=== PATIENT | male | born 1980 | race Caucasian/White ===

== ENCOUNTER 2016-12-17 13:25 | Inpatient (IN) ==
[2016-12-17 14:48] LABS: BUN/Creatinine Ratio 8 (6-26); Blood Urea Nitrogen 8 mg/dL (8-26); Calcium 9.5 mg/dL (8.6-10.8); Carbon Dioxide 27 mEq/L (19-29); Chloride 103 mEq/L (98-109); Glucose 102 mg/dL (70-99); Osmolality,Calculated 285 (280-300); Potassium 3.8 mEq/L (3.5-4.5); Sodium 138 mEq/L (136-145); eGFR For African Americans > 60 (> 60); eGFR For Non-African Americans > 60 (> 60)
--- NOTE | 2016-12-17 15:09 | Emergency Department Note ---
Disposition Clinical Impression: Cough, Hemoptysis Pneumonia Qualifiers: Pneumonia type: due to unspecified organism Laterality: right Lung location: upper lobe of lung Qualified Code(s): J18.1 - Lobar pneumonia, unspecified organism Disposition: Admitted As Inpatient Condition: Good Time of Disposition: 17:16 General Adult HPI - General Chief complaint: ED Upper Respiratory Infection Stated complaint: coughing up blood for 7 days, sick [id number], Time Seen by Provider: 12/17/16 14:05 Source: patient Limitations: no limitations Nursing Notes Reviewed: Yes Vital Signs Reviewed: Yes - History of Present Illness HPI Narrative: 36-year-old male presenting to the emergency department with a chief complaint of hemoptysis. Patient states for the past week he has had cough and increased shortness of breath. Patient states his children and significant other were sick with similar symptoms. He states he tried [id number] medications with minimal relief. Denies using antibiotics or oral steroids for this infection. The past 2 days patient has had hemoptysis upon waking up. Denies blood in his stool or blood in his urine. Patient denies any history of blood clots, hormonal replacement therapy, long trips, or unilateral leg swelling. Patient states he coughed up a quarter size amount of bright red blood. Patient denies dizziness or passing out. Pain Scale: 2 - Related Data Home Medications Medication Instructions Recorded Confirmed Benzonatate [Tessalon] 200 mg PO TID PRN 12/17/16 12/17/16 Allergies Allergy/AdvReac Type Severity Reaction Status Date / Time No Known Allergies Allergy Verified 12/17/16 13:31 All systems ED: reviewed and negative except as stated. Constitutional: Denies: fever, chills, weakness Eyes: Reports: as per HPI ENT ED: Reports: as per HPI Cardiovascular: Reports: chest pain (Pleuritic), dyspnea on exertion. Denies: palpitations Respiratory: Reports: cough, dyspnea, hemoptysis Gastrointestinal: Denies: abdominal pain, nausea, vomiting Genitourinary: Reports: as per HPI Musculoskeletal: Reports: as per HPI Integumentary: Denies: rash, abrasion, lesions Neurological: Reports: as per HPI Psychiatric: Reports: as per HPI Endocrine: Reports: as per HPI Hematological/Lymphatic: Reports: as per HPI Allergic/Immunologic: Reports: as per HPI Past Medical History - Past Medical History Attestation: Yes The following information was validated with the patient. Medical history: Reports: no medical history - Social History Smoking Status: Former smoker Alcohol use: Reports: occasionally Drug use: Reports: none Physical Exam - General Limitations: no limitations General appearance: alert, in no apparent distress - Head Head exam: atraumatic, normocephalic, normal inspection - Eye Eye exam: Present: normal appearance. Absent: scleral icterus, conjunctival injection - Chest Chest inspection: Present: normal inspection, symmetric chest wall rise. Absent : tenderness, rash - Respiratory Respiratory exam: Present: normal lung sounds bilaterally. Absent: respiratory distress, wheezes, stridor, accessory muscle use, prolonged expiratory phase - Cardiovascular Cardiovascular exam: Present: regular rate, normal rhythm, normal heart sounds - Abdominal Exam Abdominal exam: Present: soft, Non-Tender. Absent: distention, guarding, rebound - Extremities Exam Extremities exam: Present: normal inspection, full ROM - Back Exam Back exam: Present: normal inspection. Absent: CVA tenderness (R), CVA tenderness (L) - Neurological Exam Neurological exam: Present: alert, oriented X3 - Psychiatric Psychiatric exam: Present: normal affect, normal mood - Skin Skin exam: Present: warm, intact Course Course Narrative: 36-year-old male presenting to the emergency Department chief complaint of hemoptysis. Patient has no obvious signs concerning for PE but we will obtain a CTA of the chest due to new onset hemoptysis. We will also obtain a BMP. Disposition pending results. Patient alert and oriented 3 in the room with stable vital signs at this time. - Reevaluation(s) Reevaluation #1: CT showed possible tuberculosis. Patient placed on contact precautions. We will order sputum smears along with empiric antibiotics and admit the patient with isolation protocol. Spoke with infectious disease and pulmonology who agreed with this plan. Time: 16:38 Reevaluation #2: Chino Knutson accepts the patient Time: 17:15 Vital Signs Temperature 99.0 F 12/17/16 13:26 Pulse Rate 70 12/17/16 13:26 Respiratory Rate 16 12/17/16 13:26 Blood Pressure 137/90 12/17/16 13:26 O2 Sat by Pulse Oximetry 95 12/17/16 13:26 Temperature 99.0 F 12/17/16 13:26 Pulse Rate 89 12/17/16 17:06 Respiratory Rate 18 10/13/17 18:42 Blood Pressure 126/75 12/17/16 18:42 O2 Sat by Pulse Oximetry 96 12/17/16 17:06 Oxygen Delivery Oxygen Delivery Room Air Medical Decision Making - Lab Data Result diagrams: 12/17/16 14:19 Lab Results 12/17/16 Range/Units 14:19 Sodium 138 (136-145) mEq/L Potassium 3.8 (3.5-4.5) mEq/L Chloride 103 (98-109) mEq/L Carbon Dioxide 27 (19-29) mEq/L BUN 8 (8-26) mg/dL Creatinine 1.06 (0.72-1.25) mg/dL Est GFR ( Amer) > 60 (> 60) Est GFR (Non-Af Amer) > 60 (> 60) BUN/Creatinine Ratio 8 (6-26) Glucose 102 H (70-99) mg/dL Calculated Osmolality 285 (280-300) Calcium 9.5 (8.6-10.8) mg/dL Attestation Statement - Attestation Attestation: I examined this patient and my medical decision-making was reviewed with the Resident Physician. I agree with the documented findings, disposition and treatment plan as described except to the extent set forth below. Hemoptysis with cavitary lesion. Concern for tuberculosis. Placed on isolation precautions. We did consult IV for antibiotic selection as well as pulmonology for further management. Patient only admitted on isolation for further evaluation of possible active tuberculosis.
[2016-12-17] MEDS ORDERED: Piperacillin/Tazobactam 3.375 GM in D5% in Water (Mini-Bag+) 100 ML IVPB ONE (16:30)
[2016-12-17] MEDS ORDERED: Vancomycin 1,500 MG in D5% in Water 250 ML IVPB ONE (16:30)
[2016-12-17] MEDS ORDERED: Tuberculin Skin Test (PPD) 5 TUB/0.1 ML VIAL ID ONE (16:34)
[2016-12-17] MEDS ORDERED: Ondansetron 4 MG/2 ML VIAL IVP PRN (21:51)
[2016-12-17] MEDS ORDERED: Naloxone 0.4 MG/ML INJ IVP PRN (21:51)
[2016-12-17 22:37] LABS: Basophils % 0.3 %; Eosinophils % 0.6 %; Hematocrit 41.3 % (37.5-50.1); Hemoglobin 14.4 g/dL (12.9-16.9); Immature Granulocytes % 0.1 % (0-4); Immature Platelets 3.8 % (1.1-6.1); Lymphocytes # 1.2 K/mcL (0.6-4.6); Lymphocytes % 17.2 %; Mean Corpuscular HGB Conc 34.9 g/dL (31.6-35.5); Mean Platelet Volume 9.4 fL (9.4-12.4); Monocytes % 13.9 %; Neutrophils # 4.7 K/mcL (1.6-8.9); Platelet Count 247 K/mcL (140-400); Red Cell Distribution Width 12.2 % (11.5-14.5); Segmented Neutrophils % 67.9 %
[2016-12-18] MEDS ORDERED: Vancomycin 1,500 MG in D5% in Water 250 ML IVPB SCH (01:00)
--- NOTE | 2016-12-18 01:00 | Internal Med History&Physical ---
<Nicolette Richardson - Last Filed: 12/18/16 01:21> Date of Encounter: 12/18/16 Time of Encounter: 22:00 Assessment and Plan (1) Cough Current visit: Yes Status: Acute The patient has been experiencing a cough for the past 3 weeks no fever no sputum production or wheezing. Denies any sick contacts He is a nonsmoker. He has been experiencing hemoptysis for the past 2 days. DT of chest is concerning for possible tuberculosis, infection with lung abscess (including angioinvasive aspergillosis), versus cavitary neoplasm. Patient is placed in droplet precautions Consulted pulmonology as well as infectious disease. According to ER records ID recommended vancomycin and Zosyn which we will continue 2 oxygen as needed 3 Broncho dilators as needed (2) Hemoptysis Current visit: Yes Status: Acute 1 patient has been experiencing cough for 3 weeks for the past 2 days he has been awaking experiencing hemoptysis. Coughing up blood approximately size of quarter. Highly suspicious for tuberculosis-he denies any fevers night sweats or weight loss. He does have shortness of breath. 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 CT of chest is suspicious for tuberculosis, infection with lung abscess (including angioinvasive aspergillosis), versus cavitary neoplasm. Patient has been placed in droplet precautions -negative pressure room 2 Quantiferom obtained 3 TB skin test performed 4 AFB sputum spot culture obtained, we will obtain early a.m. as well as second spot culture 5 consulted infectious disease as well as pulmonology (3) DVT prophylaxis Current visit: Yes Status: Acute SCD while in bed and encourage patient to ambulate Internal Medicine - H&P: HPI Chief complaint: Hemoptysis Admitted From: Emergency Dept Plans for Post Hospital Care: Home History of present illness: Mr. Waldron is a 36 year old male with no past medical history. According patient for the past 3 weeks she has been experiencing cough and shortness of breath. His and children have been experiencing similar symptoms. He has tried [id number] medications with minimal relief no recent antibiotic use. For the past 2 days he has been waking up in the morning with hemoptysis. Coughing of quarter size bright red blood. He denies any fevers or night sweats or weight loss. He denies any recent travel outside the country. 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 He presented to the ER with these complaints. Work was completed and was unremarkable CT of chest revealed possible tuberculosis. Infectious disease as well as pulmonology have been consulted per ER physician. He has been placed in droplet precautions admitted for further work up evaluation. Presently patient is on. Respiratory distress he is chest pain-free and hemodynamically stable at this time. I did review this case with Dr. Belcher who did agree plan. Past Med Surg Social Fam HX - Past Medical History Medical history: no medical history - Social History Smoking Status: Former smoker Smokeless Tobacco Status: Yes Alcohol use: occasionally Drug use: none - Family History Father Living Status: Still Living Hx Family Cardiac Disorders: Yes (htn) Internal Medicine - H&P: Meds Benzonatate [Tessalon] 200 mg PO TID PRN 12/17/16 [History] 3 Allergy/AdvReac Type Severity Reaction Status Date / Time No Known Allergies Allergy Verified 12/17/16 13:31 All Systems PM: A 10-system review of systems was performed and is negative for pertinent findings except as documented above in the HPI. - Constitutional Constitutional: no chills, no fever(s), no night sweats - EENT Eyes: no change in vision, no discharge, no pain, no photophobia - Cardiovascular Cardiovascular ROS IM: no chest pain, no diaphoresis, no dyspnea, no lightheadedness, no palpitations, no syncope - Respiratory Respiratory: cough, dyspnea, hemoptysis - Gastrointestinal Gastrointestinal: no abdominal pain, no diarrhea, no hematemesis, no hematochezia, no melena, no nausea, no vomiting - Musculoskeletal Musculoskeletal ROS IM: no numbness, no tingling - Integumentary Integumentary IM: no rash, no unusual bruising - Neurological Neurological ROS: no confusion, no convulsions, no focal weakness, no numbness, no tingling, no tremor(s) - Hematologic/Lymphatic Hematologic/Lymphatic: no easy bruising - Constitutional Vitals: Temp Pulse Resp BP Pulse Ox 98.8 F 65 18 125/84 100 12/17/16 23:13 12/17/16 23:13 12/17/16 23:13 12/17/16 23:13 12/17/16 23:13 General appearance: Present: A&O X 3, answers questions appropriately - Head Head exam: Present: atraumatic, normocephalic - Eye Eye exam: Present: PERRL, conjuntiva pink, sclera anicteric Pupils: Present: PERRL - Neck Neck exam general surgery: Present: supple, trachea midline. Absent: lymphadenopathy - Respiratory Respiratory exam: Present: CTAB. Absent: accessory muscle use, rales, rhonchi, wheezes - Cardiovascular Cardiovascular exam: Present: RRR, +S1, +S2. Absent: diastolic murmur, gallop, rubs, systolic murmur - GI/Abdominal GI/Abdominal exam: Present: normal bowel sounds, soft, no peritoneal signs. Absent: distended, tenderness - Extremities Exam Extremities exam: Present: warm, radial pulses palpable and symmetrical. Absent : calf tenderness, cyanotic, pedal edema - Neurological Exam Neurological exam: Present: CN II-XII intact, oriented X3, no focal deficits. Absent: pronater drift, facial droop, speech deficit - Skin Skin exam: Present: dry, intact Internal Med - H&P Results - Labs CBC & Chem 7: 12/17/16 22:28 12/17/16 14:19 Labs: Short CBC 12/17/16 Range/Units 22:28 WBC 6.9 (4.3-11.1) K/mcL Hgb 14.4 (12.9-16.9) g/dL Hct 41.3 (37.5-50.1) % Plt Count 247 (140-400) K/mcL Neutrophils # 4.7 (1.6-8.9) K/mcL - Diagnostic Studies Other Images Additional comments: Chest CTA 12/17/16 14:13 IMPRESSION: No evidence of pulmonary embolism. 2.5 x 2.6 cm cavitary lesion in the right upper lobe, with surrounding centrilobular nodules, likely related to tuberculosis, infection with lung abscess (including angioinvasive aspergillosis), versus cavitary neoplasm. D/ / Maldonado Hartley MD / Maldonado Hartley MD Interpreting Provider: Maldonado Hartley MD <Russ Belcher - Last Filed: 12/18/16 03:40> Date of Encounter: 12/17/16 Internal Medicine - H&P: HPI History of present illness: Mr. Waldron is a 36 year old male All Systems PM: A 10-system review of systems was performed and is negative for pertinent findings except as documented above in the HPI. - Constitutional Vitals: Temp Pulse Resp BP Pulse Ox 98.8 F 65 18 125/84 100 12/17/16 23:13 12/17/16 23:13 12/17/16 23:13 12/17/16 23:13 12/17/16 23:13 Internal Med - H&P Results - Labs CBC & Chem 7: 12/17/16 22:28 12/17/16 14:19 Labs: Short CBC 12/17/16 Range/Units 22:28 WBC 6.9 (4.3-11.1) K/mcL Hgb 14.4 (12.9-16.9) g/dL Hct 41.3 (37.5-50.1) % Plt Count 247 (140-400) K/mcL Neutrophils # 4.7 (1.6-8.9) K/mcL - Diagnostic Studies CT scan - chest Status: image reviewed by me - Attending Attestation Correction, date of encounter was 12/17/16 and not 12/18/16, the error is purely electronic in nature I personally interviewed and examined this patient and my medical decision- making was reviewed with the Advanced Practice Nurse. I agree with the documented findings, disposition and treatment plan as described except to the extent set forth below. Patient is on airborne precautions and not droplets. He will need AFB with acid fast stain x3(spot, select banker and spot). His clinical presentation and findings as well as his employment history is highly suspicious for pulmonary tuberculosis. Family has been advised to do PPD test and get treatment for latent TB should they be positive. Infectious disease input appreciated. Russ Belcher MD, MPH Hospitalist
[2016-12-18] MEDS ORDERED: Albuterol 2.5 MG/3 ML NEBULIZER IH PRN (01:22)
[2016-12-18] MEDS: Piperacillin/Tazobactam 3.375 GM in D5% in Water (Mini-Bag+) 100 ML IVPB SCH ×3 (02:05→17:59)
[2016-12-18 03:42] LABS: BUN/Creatinine Ratio 7 (6-26); Blood Urea Nitrogen 8 mg/dL (8-26); Calcium 9.5 mg/dL (8.6-10.8); Carbon Dioxide 31 mEq/L (19-29); Chloride 102 mEq/L (98-109); Glucose 105 mg/dL (70-99); Osmolality,Calculated 289 (280-300); Potassium 3.9 mEq/L (3.5-4.5); Sodium 140 mEq/L (136-145); eGFR For African Americans > 60 (> 60); eGFR For Non-African Americans > 60 (> 60)
[2016-12-18] MEDS ORDERED: *HR* Enoxaparin 40 MG/0.4 ML SYRINGE SQ SCH (06:00)
[2016-12-18 08:51] LABS: Basophils % 0.3 %; Eosinophils # 0.1 K/mcL (0.0-0.6); Eosinophils % 1.3 %; Hematocrit 42.9 % (37.5-50.1); Hemoglobin 14.9 g/dL (12.9-16.9); Immature Granulocytes % 0.3 % (0-4); Lymphocytes # 1.1 K/mcL (0.6-4.6); Lymphocytes % 15.5 %; Mean Corpuscular HGB Conc 34.7 g/dL (31.6-35.5); Mean Corpuscular Hemoglobin 29.4 pg (28.0-33.3); Mean Corpuscular Volume 84.8 fL (83.0-100.0); Mean Platelet Volume 9.7 fL (9.4-12.4); Monocytes % 14.8 %; Neutrophils # 4.6 K/mcL (1.6-8.9); Platelet Count 233 K/mcL (140-400); Red Blood Count 5.06 M/mcL (4.19-5.50); Red Cell Distribution Width 12.2 % (11.5-14.5); Segmented Neutrophils % 67.8 %
--- NOTE | 2016-12-18 09:06 | Pulmonology Consult Note ---
Date of Encounter: 12/18/16 Time of Encounter: 08:00 Assessment and Plan (1) Hemoptysis Current Visit: Yes Status: Acute Patient has only minor hemoptysis and suspect this is related to his cavitary lesion and differential diagnosis infectious on the top and clearly because of his job mycobacterium infection in the differential diagnosis and respiratory isolation was discussed with ER physician and to empirically treat him with antibiotics. There is no need for bronchoscopy at this time and continue to have a negative AFB smears before any intervention. This is explained to the patient and he understand that. Lovenox stopped because of hemoptysis and encourage patient to move and mechanical DVT prophylaxis is recommended. Thank you for the consultation and we will continue follow-up. (2) Cavitary lesion of lung Current Visit: Yes Status: Acute Reviewed CT chest and infectious etiologies on the top of the differential diagnosis, however other conditions such as inflammatory lung disease and even malignancy cannot be ruled out, but they are low on the differential diagnosis list. And this time to wait for AFB smears and may need biopsy. Continue empiric antibiotics. History of Present Illness Consult date: 12/18/16 Requesting physician: Russ Belcher Reason for consult: other (Hemoptysis) Chief complaint: Hemoptysis History of present illness: This is a very pleasant 36-year-old male with no significant past medical history. He has a remote smoking tobacco history and is not an active smoker now. Patient stated for the past 3 weeks he has been having cough with shortness of breath. He noticed hemoptysis and it was a quarter size right red blood. This is been improving and this morning and now he has only blood tinged sputum. He denies any chest pain. He denies any fever or chills at home , however last night in the hospital he felt some night sweats. He denies any family history of tuberculosis but lung cancer in a smoker family member. He denies any recent travel outside the country. He never had PPD test in the past. 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 He had a CT chest which was abnormal and has a cavitary lesion. He was restarted on antibiotics. Patient denies any wheezing and he has no epistaxis and no blood disorders. Past Med Surg Social Fam HX - Past Medical History Medical history: no medical history - Social History Smoking Status: Former smoker Smokeless Tobacco Status: Yes Alcohol use: occasionally Drug use: none - Family History Father Living Status: Still Living Hx Family Cardiac Disorders: Yes (htn) Medications and Allergies Benzonatate [Tessalon] 200 mg PO TID PRN 12/17/16 [History] 3 Allergy/AdvReac Type Severity Reaction Status Date / Time No Known Allergies Allergy Verified 12/17/16 13:31 All Systems: A 10-system review of systems was performed and is negative for pertinent findings except as documented above in the HPI. Physical Examination Vital Signs: Hemodynamically stable. Please refer to vital signs section. General appearance: no acute distress Eyes: nonicteric ENT: oropharynx moist Mallampati (class): 2 Neck: supple, no lymphadenopathy, no JVD Effort: normal Inspection: normal Auscultation: bilateral: clear Percussion: bilateral: not dull Cardiovascular: regular rate and rhythm Gastrointestinal: normoactive bowel sounds, non-distended Extremities: no cyanosis normal mental status, non-focal exam mood appropriate Results - Laboratory Findings CBC and BMP: 12/18/16 08:40 12/18/16 02:50 Abnormal lab findings: Abnormal lab results Carbon Dioxide 31 mEq/L (19-29) H 12/18/16 02:50 Glucose 105 mg/dL (70-99) H 12/18/16 02:50 - Diagnostic Findings CT scan - chest: report reviewed, image reviewed - Clinical Findings Intake & Output: Intake & Output 12/17/16 12/18/16 12/18/16 23:59 07:59 15:59 Intake Total 350 / 350 100 / 100 Balance 350 / 350 100 / 100 Weight 94.166 kg Consult Discharge Plan - Plan Referrals: Bere Wright CNP [Primary Care Provider] -
[2016-12-18] MEDS: Acetaminophen 325 MG TABLET PO PRN (14:24)
[2016-12-18] MEDS: Vancomycin 1,500 MG in D5% in Water 250 ML IVPB SCH (15:09)
[2016-12-19] MEDS: Vancomycin 1,500 MG in D5% in Water 250 ML IVPB SCH ×2 (01:54→14:04)
[2016-12-19] MEDS: Piperacillin/Tazobactam 3.375 GM in D5% in Water (Mini-Bag+) 100 ML IVPB SCH ×3 (01:55→18:22)
[2016-12-19] MEDS: Acetaminophen 325 MG TABLET PO PRN (08:53)
--- NOTE | 2016-12-19 09:34 | Pulmonology Progress Note ---
Date of Encounter: 12/19/16 Time of Encounter: 08:00 Assessment and Plan (1) Hemoptysis Current Visit: Yes Status: Resolved There is no evidence of any major hemoptysis at this time and I suspect with antibiotic his condition will improve. However, if he starts to have hemoptysis again and AFB smears were negative, then he will need bronchoscopy. (2) Cavitary lesion of lung Current Visit: Yes Status: Acute Patient AFB smear is negative 1 and he will need total of 3. I suspect this could be bacterial infection and he is on broad-spectrum antibiotics. Patient will need follow-up CT chest in about 2-3 months, if all AFBs are negative and no more hemoptysis. Subjective Principal diagnosis: Hemoptysis Interval history: Patient sputum has cleared and no more hemoptysis and denies any complaints. Objective PUL Vital signs: Last Vital Signs Temp 98.4 F 12/19/16 08:17 Pulse 70 12/19/16 09:00 Resp 16 12/19/16 08:17 BP 131/84 12/19/16 08:17 Pulse Ox 97 12/19/16 08:17 General appearance: no acute distress Eyes: nonicteric ENT: oropharynx moist Neck: supple, no lymphadenopathy Effort: normal Auscultation: bilateral: clear Percussion: bilateral: not dull Cardiovascular: regular rate and rhythm Gastrointestinal: normoactive bowel sounds, non-distended Extremities: no cyanosis normal mental status, non-focal exam mood appropriate Results - Laboratory Findings CBC and BMP: 12/18/16 08:40 12/18/16 02:50 Abnormal lab findings: Abnormal lab results Carbon Dioxide 31 mEq/L (19-29) H 12/18/16 02:50 Glucose 105 mg/dL (70-99) H 12/18/16 02:50 - Microbiology Findings Microbiology Findings: Microbiology, Last 48 Hours 12/18/16 08:50 Acid Fast Stain - Final Sputum 12/18/16 08:50 Sputum Culture - Final Sputum - Clinical Findings Intake & Output: Intake & Output 12/18/16 12/19/16 12/19/16 23:59 07:59 15:59 Intake Total 350 / 350 350 / 350 Balance 350 / 350 350 / 350 Consult Discharge Plan - Plan Referrals: Bere Wright CNP [Primary Care Provider] -
[2016-12-19 09:46] LABS: Basophils % 0.6 %; Eosinophils # 0.2 K/mcL (0.0-0.6); Eosinophils % 3.2 %; Hematocrit 44.2 % (37.5-50.1); Hemoglobin 15.1 g/dL (12.9-16.9); Immature Granulocytes % 0.2 % (0-4); Lymphocytes % 19.1 %; Mean Corpuscular HGB Conc 34.2 g/dL (31.6-35.5); Mean Corpuscular Hemoglobin 29.7 pg (28.0-33.3); Mean Platelet Volume 9.9 fL (9.4-12.4); Monocytes # 0.8 K/mcL (0.0-1.3); Monocytes % 15.1 %; Neutrophils # 3.3 K/mcL (1.6-8.9); Platelet Count 217 K/mcL (140-400); Red Blood Count 5.08 M/mcL (4.19-5.50); Red Cell Distribution Width 12.4 % (11.5-14.5); Segmented Neutrophils % 61.8 %
[2016-12-19 09:56] LABS: BUN/Creatinine Ratio 6 (6-26); Blood Urea Nitrogen 6 mg/dL (8-26); Calcium 9.7 mg/dL (8.6-10.8); Carbon Dioxide 28 mEq/L (19-29); Chloride 103 mEq/L (98-109); Glucose 109 mg/dL (70-99); Osmolality,Calculated 292 (280-300); Potassium 4.2 mEq/L (3.5-4.5); Sodium 142 mEq/L (136-145); eGFR For African Americans > 60 (> 60); eGFR For Non-African Americans > 60 (> 60)
[2016-12-19] MEDS: Nicotine 21 MG PATCH.TD24 TD SCH (14:33)
--- NOTE | 2016-12-19 16:54 | Internal Med Progress Note ---
Date of Encounter: 12/19/16 Time of Encounter: 11:00 - Assessment and plan (1) Hemoptysis Current Visit: Yes Status: Resolved Assessment and plan: -CTA showed a 2.5 x 2.6 cm cavitary lesion in the right upper lobe, with surrounding centrilobular nodules, likely related to tuberculosis, infection with lung abscess (including angioinvasive aspergillosis), versus cavitary neoplasm. -Patient has had 3 consecutive negative sputum acid fast bacillus (AFB) smear therefore isolation precautions will be discontinued -Pulmonology following and suspects this could be bacterial infection and he is on broad-spectrum antibiotics. -Recommendations for bronchoscopy if patient continues to have hemoptysis; if no further hemoptysis recommendations for follow-up CT in 2-3 months. -Continue IV antibiotics for now (2) Cavitary lesion of lung Current Visit: Yes Status: Acute Assessment and plan: -As above. (3) Cough Current Visit: Yes Status: Acute Assessment and plan: -Continue IV antibiotics to treat suspected bacterial infection. - Subjective Interval history: -Patient has had no further episodes of hemoptysis thus far. - Constitutional Vitals: Temp Pulse Resp BP Pulse Ox 98.7 F 68 18 113/80 95 12/19/16 11:46 12/19/16 11:46 12/19/16 11:46 12/19/16 11:46 12/19/16 11:46 General appearance: Present: A&O X 3, answers questions appropriately Internal Medicine: Result - Labs CBC & Chem 7: 12/19/16 08:40 12/19/16 08:40 Labs: Short CBC 12/19/16 Range/Units 08:40 WBC 5.3 (4.3-11.1) K/mcL Hgb 15.1 (12.9-16.9) g/dL Hct 44.2 (37.5-50.1) % Plt Count 217 (140-400) K/mcL Neutrophils # 3.3 (1.6-8.9) K/mcL BMP 12/19/16 08:40 Sodium 142 Potassium 4.2 Chloride 103 Carbon Dioxide 28 BUN 6 L Creatinine 1.08 Glucose 109 H Calcium 9.7 Consult Discharge Plan - Plan Referrals: Bere Wright, BETTE [Primary Care Provider] -
[2016-12-20] MEDS: Piperacillin/Tazobactam 3.375 GM in D5% in Water (Mini-Bag+) 100 ML IVPB SCH ×2 (01:59→09:48)
[2016-12-20] MEDS ORDERED: Vancomycin 1,750 MG in D5% in Water 500 ML IVPB SCH (02:00)
[2016-12-20 08:59] LABS: Basophils % 0.5 %; Eosinophils # 0.2 K/mcL (0.0-0.6); Eosinophils % 3.8 %; Hematocrit 42.6 % (37.5-50.1); Hemoglobin 14.7 g/dL (12.9-16.9); Immature Granulocytes % 0.2 % (0-4); Immature Platelets 3.3 % (1.1-6.1); Lymphocytes % 23.8 %; Mean Corpuscular HGB Conc 34.5 g/dL (31.6-35.5); Mean Corpuscular Hemoglobin 29.5 pg (28.0-33.3); Mean Corpuscular Volume 85.4 fL (83.0-100.0); Mean Platelet Volume 9.6 fL (9.4-12.4); Monocytes # 0.7 K/mcL (0.0-1.3); Monocytes % 16.2 %; Neutrophils # 2.3 K/mcL (1.6-8.9); Platelet Count 243 K/mcL (140-400); Red Blood Count 4.99 M/mcL (4.19-5.50); Red Cell Distribution Width 12.2 % (11.5-14.5); Segmented Neutrophils % 55.5 %
[2016-12-20 09:10] LABS: BUN/Creatinine Ratio 7 (6-26); Blood Urea Nitrogen 7 mg/dL (8-26); Calcium 9.6 mg/dL (8.6-10.8); Carbon Dioxide 26 mEq/L (19-29); Chloride 105 mEq/L (98-109); Glucose 100 mg/dL (70-99); Osmolality,Calculated 288 (280-300); Potassium 3.9 mEq/L (3.5-4.5); Sodium 140 mEq/L (136-145); eGFR For African Americans > 60 (> 60); eGFR For Non-African Americans > 60 (> 60)
[2016-12-20] MEDS: Nicotine 21 MG PATCH.TD24 TD SCH (09:49)
--- NOTE | 2016-12-20 10:52 | Pulmonology Progress Note ---
Date of Encounter: 12/20/16 Time of Encounter: 10:00 Assessment and Plan (1) Hemoptysis Current Visit: Yes Status: Acute Patient hemoptysis stopped he had some brown camila sputum. (2) Cavitary lesion of lung Current Visit: Yes Status: Acute Right sided upper lobe Cavitatory lesion Immunocompetent host 3 AFB is negative for acid fast organisms highly doubt is TB ,Fungal is very low in differential also malignancy is very low in the differential with current acute presentation more likely bacterial . atypical organisms , sputum shows gram positive and Gram negative organisms , patient is on broad spectrum antibiotics . Will send him home on Doxycycline 100 mg BID for 14 days , told him if the symptoms worsen if the hemoptysis comes back needs back to the hospital , if the sputum is not getting better after antibiotics he should call the office , everything else stable will follow in 2 -[address] chest without contrast. Please schedule 2-3 months follow up in Pulmonary office. (3) Pneumonia Current Visit: Yes Status: Acute Most likely bacterial will send home on Doxycycline 100 mg BID for 14 days will cover atypical organisms. 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 Objective PUL Vital signs: Last Vital Signs Temp 98.6 F 12/20/16 05:13 Pulse 81 12/20/16 09:00 Resp 16 12/20/16 09:00 BP 115/70 12/20/16 05:13 Pulse Ox 97 12/20/16 09:00 Auscultation: bilateral: clear Results - Laboratory Findings CBC and BMP: 12/20/16 08:42 12/20/16 08:42 Abnormal lab findings: Abnormal lab results WBC 4.2 K/mcL (4.3-11.1) L 12/20/16 08:42 BUN 7 mg/dL (8-26) L 12/20/16 08:42 Glucose 100 mg/dL (70-99) H 12/20/16 08:42 Vancomycin Trough 9.0 mcg/mL (10-20) L 12/20/16 00:38 - Microbiology Findings Microbiology Findings: Microbiology, Last 48 Hours 12/18/16 21:24 Acid Fast Stain - Final Sputum 12/18/16 14:30 Acid Fast Stain - Final Sputum 12/18/16 08:50 Acid Fast Stain - Final Sputum 12/18/16 08:50 Sputum Culture - Final Sputum - Clinical Findings Intake & Output: Intake & Output 12/19/16 12/20/16 12/20/16 23:59 07:59 15:59 Intake Total 590 / 590 600 / 600 480 / 480 Balance 590 / 590 600 / 600 480 / 480 Consult Discharge Plan - Plan Referrals: Bere Wright, [facility] [Primary Care Provider] -
[2016-12-20 11:29] VITALS: BP 119/77
[2016-12-20] MEDS: Vancomycin 1,500 MG in D5% in Water 250 ML IVPB SCH (13:58)
--- NOTE | 2016-12-20 15:33 | Infectious Disease Consult ---
Date of Encounter: 12/20/16 Time of Encounter: 15:31 Assessment and Plan (1) Fever Status: Acute Assessment and plan: The patient had a fever with Tmax 100.8 during his hospital stay. Resolved. The patient has been afebrile x 24 hours. Qualifiers: Fever type: unspecified Qualified Code(s): R50.9 - Fever, unspecified (2) Cavitary lesion of lung Status: Acute Assessment and plan: Location: RUL. Causative organism unclear. Etiology unclear. Workup negative for TB (AFB smear negative x 3, PPD negative, QFT pending). Concern for fungal etiology vs bacterial. Sputum culture is negative. Currently on day 4 of Vancomycin and Zosyn. Discontinue Vancomycin and Zosyn. Start Augmentin 875mg PO BID x 21 days. Will need repeat CT scan closer to the end of treatment and will consider fungal workup as an outpatient. Follow up with ID 12/30/16 at 1330. (3) Cough Status: Acute Assessment and plan: Likely secondary to cavitary lung lesion. Continue supportive care per the primary team. (4) Hemoptysis Status: Acute Assessment and plan: Likely secondary to cavitary lung lesion. Resolved. Infectious Disease HPI - Data of Consult Patient: new to practice Consult date: 12/20/16 Requesting Physician: Vijay Heredia Primary Care Provider: Bere Wright, - Consult Narrative Reason for consult: Cavitary lung lesion History of present illness: Mr. Waldron is a 36 year old male with no major medical history who presented to the ER on 12/17/16. He was admitted for cavitary lung lesion. We are consulted 12/20/16 for further recommendations for cavitary lung lesion. The patient is a 36 year old male with no major medical history. The patient presented to the ER on the day of admission with complaints of cough and hemoptysis that started about a week prior to presentation. He reported onset of upper respiratory symptoms about three weeks prior to presentation. He reports the URI symptoms and cough initially improved about a week and a half after onset, but the cough returned and he started to have a small amount of hemoptysis, about a quarter in size. He states he also had some chest tightness so he came to the ER. Upon arrival, the patient was afebrile and hemodynamically stable. WBC was normal. CTA of the chest revealed a RUL cavitary lesion concerning for TB. The patient was placed on isolation precautions and was started on empiric IV antibiotics. He was admitted to the hospital for further evaluation. Since admission, the patient has improved. Pulmonology was consulted and bronch was held due to the resolution of the hemoptysis. AFB smears have been negative x 3. Sputum culture is negative as well. WBC has remained normal. The patient had a couple of isolated low-grade fevers, but he has been afebrile for > 24 hours. During my exam, the patient states that he feels better. Endorses the history as above. ROS is otherwise negative. The patient works as a [employer] in [facility]. 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 He also used to work as asbestos clean-up, but tells me he always wore the proper respirator. He does not use a mask when working in his garage. 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 He denies any infectious history. CC: Vijay Heredia Past Med Surg Social Fam HX - Past Medical History Attestation: Yes The following information was validated with the patient. Source: patient, old records reviewed, nursing notes reviewed Medical history: no medical history Psychiatric history: no psych history - Past Surgical History Surgical History: orthopedic, other (Right elbow surgery) - Social History Smoking Status: Former smoker Smokeless Tobacco Status: Yes (1 can per day) Alcohol use: occasionally (3 beers per week) Drug use: none Occupational status: employed ([employer]) Current living situation: Home - Independent Activity Level: Independent ambulation Recent Out of Country Travel Within the Last 8 Weeks: No Exposure or Possible Exposure to Illness During Travel: No - Family History Father Living Status: Still Living Hx Family Cardiac Disorders: Yes (htn) Infectious Disease-CN:Meds Benzonatate [Tessalon] 200 mg PO TID PRN 12/17/16 [History] Doxycycline 100 mg PO BID #28 capsule 12/20/16 [Rx] 3 Allergy/AdvReac Type Severity Reaction Status Date / Time No Known Allergies Allergy Verified 12/17/16 13:31 All systems: reviewed and no additional remarkable complaints except as stated Exam - Constitutional Vitals: Temp Pulse Resp BP Pulse Ox 98.3 F 63 14 119/77 97 12/20/16 11:26 12/20/16 11:26 12/20/16 11:26 12/20/16 11:26 12/20/16 09:00 General appearance: average body habitus, cooperative, no acute distress - Head Head exam: Present: atraumatic, normal inspection, normocephalic - Eye Eye exam: Present: EOMI, normal appearance, PERRL Pupils: Present: normal accommodation Additional comments: No subconjunctival hemorrhage noted. - ENT ENT exam: Present: mucous membranes moist - Neck Neck exam: Present: normal inspection - Respiratory Respiratory exam: Present: CTAB. Absent: rales, respiratory distress, rhonchi, wheezes - Cardiovascular Cardiovascular exam: Present: RRR, +S1, +S2 - GI/Abdominal GI/Abdominal exam: Present: normal bowel sounds, soft. Absent: distended, tenderness - Extremities Exam Extremities exam: Present: normal inspection, tenderness (Erythema noted at previous IV site in the left AC.). Absent: joint swelling, pedal edema - Back Exam Back exam: Present: normal inspection. Absent: paraspinal tenderness, vertebral tenderness - Neurological Exam Neurological exam: Present: alert, oriented X3 - Psychiatric Psychiatric exam: Present: normal affect, normal mood - Skin Skin exam: Present: dry, intact, normal color, warm Infectious Disease CN: Results - Labs CBC & Chem 7: 12/20/16 08:42 12/20/16 08:42 Cultures: Cultures 12/18/16 21:24 Acid Fast Stain - Final Sputum 12/18/16 14:30 Acid Fast Stain - Final Sputum 12/18/16 08:50 Acid Fast Stain - Final Sputum 12/18/16 08:50 Sputum Culture - Final Sputum Consult Discharge Plan - Plan Instructions: Doxycycline (By mouth), Pneumonia (DC) Referrals: Bere Wright CNP [Primary Care Provider] - 12/28/16 1:00 pm (If unable to make this time, please follow up with your primary in 7-10 days. ) Prescriptions: Doxycycline 100 mg PO BID #28 capsule
--- NOTE | 2016-12-20 15:40 | Discharge Summary ---
Date of Encounter: 12/20/16 Time of Encounter: 11:00 - Discharge Diagnosis (1) Hemoptysis Priority: Primary Status: Acute (2) Cavitary lesion of lung Priority: Primary Status: Acute (3) Cough Priority: Primary Status: Acute - Discharge Medications Prescriptions: Doxycycline 100 mg PO BID #28 capsule Home Medications: Benzonatate [Tessalon] 200 mg PO TID PRN 12/17/16 [History] Doxycycline 100 mg PO BID #28 capsule 12/20/16 [Rx] Allergies/Adverse Reactions: 3 Allergy/AdvReac Type Severity Reaction Status Date / Time No Known Allergies Allergy Verified 12/17/16 13:31 Date of admission: 12/17/16 21:51 Primary care physician: Bere Wright, - Patient Status Disposition: Home, Self-Care Condition: Good - Discharge Instructions Follow Up With: Bere Wright CNP [Primary Care Provider] - Hospital course: Patient is a 36 year old male with no past medical history who presented to the ER on 12/17/16 for hemoptysis. Patient reported 3 weeks prior to admission of having cough and shortness of breath. His and children have been experiencing similar symptoms. He has tried [id number] medications with minimal relief no recent antibiotic use. For the past 2 days prior to admission, he had been waking up in the morning with hemoptysis. Coughing of quarter size bright red blood. He denied any fevers or night sweats or weight loss. He denied any recent travel outside the country. 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 In the ER, CT showed a 2.5 x 2.6 cm cavitary lesion in the right upper lobe, with surrounding entrilobular nodules, likely related to tuberculosis, infection with lung abscess (including angioinvasive aspergillosis), versus cavitary neoplasm. Patient was admitted to medical floor in isolation for workup. During patients hospital stay he was treated with IV vancomycin and Zosyn. 3 AFB smears were negative and patient was taken out of respiratory isolation. Pulmonology was consult with recommendations for a 14 day course of doxycycline and to follow up with CT of chest in 2-3 months. She will follow up with pulmonary as an outpatient. - Time Spent with Patient Total time spent providing and/or coordinating discharge services: Less than 30 minutes - Constitutional Vitals: Temp Pulse Resp BP Pulse Ox 98.3 F 63 14 119/77 97 12/20/16 11:26 12/20/16 11:26 12/20/16 11:26 12/20/16 11:26 12/20/16 09:00 General appearance: Present: A&O X 3, answers questions appropriately - Respiratory Respiratory exam: Present: CTAB. Absent: accessory muscle use, rales, rhonchi, wheezes - Cardiovascular Cardiovascular exam: Present: RRR, +S1, +S2. Absent: diastolic murmur, gallop, rubs, systolic murmur
[2016-12-22 15:56] LABS: QuantiFERON Mitogen minus NIL >10.00 IU/mL; QuantiFERON-TB minus NIL 0.11 IU/mL (0.00-0.34)
[2016-12-23 07:50] LABS: QuantiFERON NIL 0.07 IU/mL; QuantiFERON-TB Gold In-Tube NEGATIVE (Negative)
== END 2016-12-20 16:50 | disposition home or self-care (01) | DRG 206 ==
LOC: EMEROO 13:25 → 2NNU 13:25
PROVIDERS: ADMIT Hospitalist; ATTEND Hospitalist